=== PATIENT | female | born 1965 | race Two or more races ===

== ENCOUNTER 2018-12-12 06:45 | Day surgery (SDC) | payer BC ==
[~2018-12-12] VITALS: Ht 165.1 cm; Wt 94.3 kg
[~2018-12-12 06:45] MED LIST: BUPIVACAINE MPF 0.5% 30 ML VIAL. ONE; LIDOCAINE 1% 20 ML VIAL. ONE
[2018-12-12] MEDS ORDERED: ONDANSETRON PF 4 MG/2 ML VIAL. IV PRN (07:00)
[2018-12-12] MEDS ORDERED: PROCHLORPERAZINE 10 MG/2 ML VIAL. IV PRN (07:00)
[2018-12-12] MEDS ORDERED: MORPHINE SULFATE 2 MG/ML VIAL. IV PRN (07:00)
[2018-12-12] MEDS ORDERED: HYDROmorphone 2 MG/ML VIAL IV PRN (07:00)
[2018-12-12] MEDS ORDERED: fentaNYL PF VIAL 100 MCG/2 ML VIAL IV PRN ×2 (07:00)
[2018-12-12] MEDS ORDERED: IV RINGERS,LACTATED 1000ML 1,000 ML IV SCH (07:00)
[2018-12-12] MEDS ORDERED: OLME1TAB21 PO (07:13)
[2018-12-12] MEDS ORDERED: HYDR-2761 PO (07:14)
[2018-12-12] MEDS ORDERED: TRAM50TA PO (07:14)
--- NOTE | 2018-12-12 07:17 | DISCH ---
DISCHARGE INSTRUCTIONS Condition on Discharge Condition on Discharge: Stable Activity After Discharge Activity Instructions for Disc: Activity as tolerated Other activity instructions: wiggle fingers Bathing Instructions: Shower-keep dressing dry Lifting Instructions after Dis: No heavy lifting, No pulling or pushing Weight Bearing Status after Di: As tolerated Diet after Discharge Diet after Discharge: Regular Wound Incision Care Wound/Incision Care: Ice to area for comfort, Keep wound elevated, Change dressing Other wound/incision instructi: ok to change dressing in [address] after DC Call your doctor for: Concerns you may have Follow-Up Follow up with: Arlen in 2 wks STUART WATSON II, MD Dec 12, 2018 07:17
[2018-12-12] MEDS ORDERED: PROPOFOL 20 ML IV ONE (07:56)
[2018-12-12] MEDS ORDERED: LIDOCAINE 2% PF 5 ML VIAL. ONE (07:56)
[2018-12-12] MEDS ORDERED: ONDANSETRON PF 4 MG/2 ML VIAL. ONE (07:56)
[2018-12-12] MEDS ORDERED: MIDAZOLAM HCL/PF 2 MG/2 ML VIAL. ONE (07:56)
[2018-12-12] MEDS ORDERED: DEXAMETHASONE SOD PHOS 20 MG/5 ML VIAL. ONE (07:56)
[2018-12-12] MEDS ORDERED: ceFAZolin 2GM PREMIX 2 GM/50 ML BAG IV ONE (08:00)
[2018-12-12] MEDS ORDERED: LIDOCAINE 1% 20 ML VIAL. INJ ONE (08:29)
[2018-12-12] MEDS ORDERED: SEVOFLURANE 16 TO 30 MINUTES. IH ONE (08:39)
--- NOTE | 2018-12-12 08:51 | PDOC4 ---
Operative Note Operative Note Date of procedure: 12/12/2018 Surgeon: Vasquez Watson Preoperative diagnosis: Left carpal tunnel syndrome Postoperative diagnosis: Same Procedure performed: Open left carpal tunnel release Anesthesia: sedation Findings: Normal-appearing median nerve Blood loss: 2 mL Tourniquet time: 20 minutes Complications: None Reason for procedure: Patient is very pleasant individual has had long-standing carpal tunnel symptoms that have failed conservative therapies. EMG demonstrated the same. Because conservative therapies had failed and the carpal tunnel syndrome was interfering with activities of daily living, we discussed the risks, benefits, alternatives to the above procedure and they wished to proceed. Description of procedure: Patient was greeted in the preoperative area where the patient underwent successful induction of conscious sedation. The left upper extremity was then prepped and draped in her usual sterile fashion we conducted our standard preoperative timeout. After this, I made a skin incision from the distal wrist crease into the palm over the transverse carpal ligament and incised skin with a scalpel, dissected subcutaneous tissue until I encountered the palmar fascia with a mosquito clamp. Hemostasis was achieved with bipolar cautery. The palmar fascia was incised in line with the skin incision and myself retaining retractor was then positioned. I then identified the transverse carpal ligament and transected this with the scalpel. I then placed a Ragnell retractor at the distal portion of the incision, spread above and below small remaining portion of the transverse carpal ligament with a tenotomy and then released the remainder of the ligament distally with the tenotomy scissors. I then repeated this maneuver at the proximal portion of the incision and an ulnar directed fashion to release E distal and antebrachial fascia. I then palpated along the median nerve with the tip of the tenotomies to help ensure that accomplished a complete release. The wound was then thoroughly irrigated out with sterile fluid. Skin was then closed with simple interrupted 2-0 nylon. A soft bulky sterile dressing was applied. All counts correct 2 prior to wound closure. Surgery was well tolerated by the patient. The tourniquet was let down and the patient was transferred gently supine to the recovery room cart and taken to PACU in a stable and extubated condition. Postoperative plan is to encourage elevation of the hand and active range of motion at fingers and wrist. I will see the patient back in 2 weeks, sooner should a problem arise. VASQUEZ WATSON II, MD Dec 12, 2018 08:51
[2018-12-12] MEDS ORDERED: fentaNYL PF VIAL 100 MCG/2 ML VIAL ONE (09:16)
[2018-12-12] MEDS ORDERED: HYDROcodone/APAP 5/325MG 1 TAB TABLET ONE (09:42)
[2018-12-12] MEDS ORDERED: HYDROcodone/APAP 5/325MG 1 TAB TABLET PO ONE (09:45)
[2018-12-12 10:15] VITALS: BP 108/64
== END 2018-12-12 10:15 | disposition home or self-care (01) ==
LOC: SURG 06:45
PROVIDERS: ATTEND Orthopaedic Surgery Sports Medicine
DX: G56.02 Carpal tunnel syndrome, left upper limb (principal); Z88.2 Allergy status to sulfonamides; I10 Essential (primary) hypertension; Z90.49 Acquired absence of other specified parts of digestive tract; Z82.49 Family history of ischemic heart disease and other diseases of the circulatory system; Z87.891 Personal history of nicotine dependence; Z79.899 Other long term (current) drug therapy
CPT/HCPCS: 64721; A7015; J0696; J1100; J2001; J2250; J2405; J2704; J3010; J3490